=== PATIENT | female | born 1965 | race American Indian/Alaskan Native ===

== ENCOUNTER 2017-10-01 09:11 | Outpatient (CLI) | payer BC ==
--- NOTE | 2017-10-01 11:01 | Mammography Report ---
BILATERAL MAMMOGRAM: FINDINGS: The breast tissue is heterogeneously dense, which could obscure detection of small masses (approximately 50%-75% glandular). No mass, distortion, suspicious calcification, or skin change is seen. There is no significant change when compared to prior examinations dating back to May 2015. CAD was utilized. IMPRESSION: Negative mammogram. There is no mammographic evidence of malignancy. RECOMMENDATION: Follow-up per ACS guidelines. BI-RADS CATEGORY: 1 = Negative ACR BI-RADS MAMMOGRAPHIC CODES: 0 = Needs additional imaging evaluation; 1 = Negative; 2 = Benign; 3 = Probably benign; 4 = Suspicious; 5 = Malignant; 6 = Known biopsy-proven malignancy COMMENT: 1. Dense breast tissue, i.e., adenosis, fibrocystic changes, etc., may obscure an underlying neoplasm. 2. Approximately 10% of cancers are not detected with mammography. 3. A negative mammography report should not delay biopsy if a clinically suspicious mass is present. COMMENT: Patient follow-up letters are generated in [employer].
== END 2017-10-01 09:12 | disposition home or self-care (01) ==
LOC: SPVWC 09:11
PROVIDERS: ATTEND Obstetrics & Gynecology
DX: Z12.31 Encounter for screening mammogram for malignant neoplasm of breast (principal)
CPT/HCPCS: 77067

== ENCOUNTER 2018-11-23 09:16 | Outpatient (CLI) | payer OTHER ==
--- NOTE | 2018-11-28 08:15 | Mammography Report ---
BILATERAL SCREENING MAMMOGRAM DIGITAL WITH CAD and 3D TOMOSYNTHESIS INDICATION: Screening. COMPARISONS: None. FINDINGS: 2D and 3D craniocaudal and mediolateral oblique views of both breasts were obtained utilizi ng digital acquisition. The breasts are heterogeneously dense, which may obscure small masses. No mas s, architectural distortion or suspicious calcifications. In addition to standard review, the examination was analyzed for possible abnormalities using a [employer] ter-assisted detection device (R2 Image Economic Developer). IMPRESSION: NO MAMMOGRAPHIC EVIDENCE OF MALIGNANCY. SCREENING MAMMOGRAPHY IN ONE YEAR IS RECOMMENDED. BI-RADS CATEGORY 1: NEGATIVE COMMENT: Patient follow-up letters are generated by our [employer] application. Signer Name: Shree Huffman MD Signed: 11/28/2018 8:11 AM Workstation Name: [id number]
--- NOTE | 2018-11-28 08:15 | Mammography Report ---
BILATERAL SCREENING MAMMOGRAM DIGITAL WITH CAD and 3D TOMOSYNTHESIS INDICATION: Screening. COMPARISONS: None. FINDINGS: 2D and 3D craniocaudal and mediolateral oblique views of both breasts were obtained utilizi ng digital acquisition. The breasts are heterogeneously dense, which may obscure small masses. No mas s, architectural distortion or suspicious calcifications. In addition to standard review, the examination was analyzed for possible abnormalities using a [employer] ter-assisted detection device (R2 Image Drum Sander Offbearer). IMPRESSION: NO MAMMOGRAPHIC EVIDENCE OF MALIGNANCY. SCREENING MAMMOGRAPHY IN ONE YEAR IS RECOMMENDED. BI-RADS CATEGORY 1: NEGATIVE COMMENT: Patient follow-up letters are generated by our [email or web address] application. Signer Name: Shree Huffman MD Signed: 11/28/2018 8:11 AM Workstation Name: [id number]
== END 2018-11-23 09:17 | disposition home or self-care (01) ==
LOC: SPVWC 09:16
PROVIDERS: ATTEND Obstetrics & Gynecology
DX: Z12.31 Encounter for screening mammogram for malignant neoplasm of breast (principal)
CPT/HCPCS: 77063; 77067